=== PATIENT | female | born 1985 | race African-American/Black ===

== ENCOUNTER 2016-07-07 16:09 | Emergency (ER) | payer OTHER, MEDICAID ==
[2016-07-07] MEDS ORDERED: ASPIRIN 325 MG TABLET PO ONE (16:40)
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
--- NOTE | 2016-07-07 18:06 | EKG REPORT ---
SEVERITY:- NORMAL ECG - SINUS RHYTHM : Confirmed by: Dillon Collins MD 07-Jul-2016 18:05:30
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
[2016-07-07 21:08] VITALS: BP 117/86
== END 2016-07-07 18:48 | disposition home or self-care (01) ==
LOC: ER 16:09
DX: R07.89 Other chest pain (principal); M54.5 Low back pain; V49.9XXS Car occupant (driver) (passenger) injured in unspecified traffic accident, sequela; F17.210 Nicotine dependence, cigarettes, uncomplicated; M06.9 Rheumatoid arthritis, unspecified; Z79.899 Other long term (current) drug therapy
CPT/HCPCS: 93005; 93010; 99284

== ENCOUNTER 2016-10-13 22:03 | Emergency (ER) | payer MEDICAID, OTHER ==
--- NOTE | 2016-10-14 00:41 | ER Document Report ---
ED Extremity Problem, Lower - General Chief Complaint: Leg Pain Stated Complaint: SWOLLEN FEET,LEGS,HEARD SOMETHING Notes: The patient is a 31-year-old female who presents with multiple complaints. She was walking in the rain earlier tonight and noticed a pain over the top of her right foot. In addition, she is having dysuria for the past 2 days and started cranberry pills. She is also noticing several months of worsening ankle swelling at the end of the day. She denies numbness, tingling, open wounds, calf swelling, fevers, nausea, vomiting, chest pain or shortness of breath. TRAVEL OUTSIDE OF THE [place] IN LAST 30 DAYS: No - Related Data Allergies/Adverse Reactions: No Known Allergies Allergy (Verified 07/07/16 16:35) Past Medical History - General Information source: Patient - Social History Smoking Status: Current Every Day Smoker Family History: Reviewed & Not Pertinent - Past Medical History Cardiac Medical History: Denies: Hx Heart Attack, Hx Hypertension Pulmonary Medical History: Denies: Hx Asthma, Hx Bronchitis, Hx COPD, Hx Pneumonia Neurological Medical History: Denies: Hx Seizures Renal/ Medical History: Denies: Hx Peritoneal Dialysis Musculoskeltal Medical History: Reports Hx Arthritis - RA Psychiatric Medical History: Reports: Hx Anxiety, Hx Depression - Anxiety Past Surgical History: Reports: Hx Section - x 5, Hx Hysterectomy - Immunizations Hx Diphtheria, Pertussis, Tetanus Vaccination: Yes Review of Systems - Review of Systems Notes: REVIEW OF SYSTEMS: CONSTITUTIONAL: -fevers, -chills EENT: -eye pain, -difficulty swallowing, -nasal congestion CARDIOVASCULAR: -chest pain, -syncope. RESPIRATORY: -cough, -SOB GASTROINTESTINAL: -abdominal pain, -nausea, -vomiting, -diarrhea GENITOURINARY: +dysuria, -hematuria MUSCULOSKELETAL: -back pain, -neck pain, +right foot pain SKIN: -rash or skin lesions. HEMATOLOGIC: -easy bruising or bleeding. LYMPHATIC: -swollen, enlarged glands. NEUROLOGICAL: -altered mental status or loss of consciousness, -headache, - neurologic symptoms PSYCHIATRIC: -anxiety, -depression. ALL OTHER SYSTEMS REVIEWED AND NEGATIVE. Physical Exam - Vital signs Vitals: Temp Pulse Resp BP Pulse Ox 97.9 F 68 20 125/75 100 10/13/16 22:19 10/13/16 22:19 10/13/16 22:19 10/13/16 22:19 10/13/16 22:19 - Notes Notes: PHYSICAL EXAMINATION: GENERAL: Well-appearing, well-nourished and in no acute distress. HEAD: Atraumatic, normocephalic. EYES: Pupils equal round and reactive to light, extraocular movements intact, sclera anicteric, conjunctiva are normal. ENT: nares patent, oropharynx clear without exudates. Moist mucous membranes. NECK: Normal range of motion, supple without lymphadenopathy LUNGS: Breath sounds clear to auscultation bilaterally and equal. No wheezes rales or rhonchi. HEART: Regular rate and rhythm without murmurs ABDOMEN: Soft, nontender, normoactive bowel sounds. No guarding, no rebound. No masses appreciated. EXTREMITIES: Normal range of motion, no pitting or edema. No cyanosis. Mild tenderness over top of right foot. NEUROLOGICAL: Cranial nerves grossly intact. Normal speech, normal gait. Normal sensory, motor, and reflex exams. PSYCH: Normal mood, normal affect. SKIN: Warm, Dry, normal turgor, no rashes or lesions noted. Course - Re-evaluation Re-evalutation: Patient presents with multiple vague complaints that did not appear to be concerning for any acute life-threatening pathology. Vitals are within normal limits at triage and at time of discharge. Physical examination is unremarkable. Patient has tolerated oral intake without difficulty. Patient was not noted to be in distress at any point during their ER visit. At this time, based on the reassuring evaluation, I do not suspect an acute OK, pulmonary embolus, aortic dissection, acute intra-abdominal pathology, stroke, or sepsis.Will discharge with return precautions and follow-up recommendations. Verbal discharge instructions given a the bedside and opportunity for questions given. Medication warnings reviewed. Patient is in agreement with this plan and has verbalized understanding of return precautions and the need for primary care follow-up in the next 24-72 hours. - Vital Signs Vital signs: Temp Pulse Resp BP Pulse Ox 98.0 F 69 15 113/67 98 10/14/16 02:07 10/14/16 02:07 10/14/16 02:07 10/14/16 02:07 10/14/16 02:07 - Laboratory Laboratory results interpreted by me: 10/14/16 00:47 Ur Leukocyte Esterase TRACE H Urine Ascorbic Acid 20 H - Diagnostic Test Radiology reviewed: Image reviewed, Reports reviewed Radiology results interpreted by me: Normal right foot x-ray. Discharge - Discharge Clinical Impression: Foot pain, right, Dysuria Condition: Good Disposition: HOME, SELF-CARE Additional Instructions: Continue to take the cranberry pills to help with her urinary symptoms. There is no signs of a UTI 1 year urinalysis. No broken bones on your foot x-ray. Continue Motrin and elevating legs to help with any swelling. Follow-up with your primary care physician.
[2016-10-14 01:21] LABS: APPEARANCE,URINE SLIGHTLY-CLOUDY; BILIRUBIN,URINE NEGATIVE (NEGATIVE); GLUCOSE, URINE NEGATIVE (NEGATIVE); KETONES,URINE NEGATIVE (NEGATIVE); LEUKOCYTE ESTERASE,URINE TRACE (NEGATIVE); NITRITE,URINE NEGATIVE (NEGATIVE); PROTEIN,URINE NEGATIVE (NEGATIVE); URINE SPECIFIC GRAVITY 1.033; UROBILINOGEN,URINE NEGATIVE mg/dL (<2.0)
[2016-10-14 02:09] VITALS: BP 113/67
== END 2016-10-14 02:07 | disposition home or self-care (01) ==
LOC: ER 22:03
DX: R30.0 Dysuria (principal); M79.671 Pain in right foot; M79.604 Pain in right leg; F17.200 Nicotine dependence, unspecified, uncomplicated; Z90.710 Acquired absence of both cervix and uterus
CPT/HCPCS: 81001; 81025; 82962; 99284

== ENCOUNTER 2017-07-01 23:42 | Emergency (ER) | payer MEDICAID ==
[2017-07-02 01:14] VITALS: BP 105/71
[2017-07-02] MEDS ORDERED: IBUPROFEN 600 MG TABLET PO ONE (01:14)
--- NOTE | 2017-07-02 01:14 | ER Document Report ---
HPI - HPI Patient complains to provider of: chest pain Pain Level: Denies Context: 6 patient is a 32-year-old female presents emergency department complaining of chest pain she has had on and off every other day for the past 6 weeks. Patient states that she has been really stressed at home since she is a single mother for 5 children. She describes it as a bruise muscle pain in the center of her chest that improves with aspirin. She has not followed up with her primary care doctor about this. She is a current smoker. Otherwise denies any history of hypertension, hyperlipidemia, diabetes, coronary artery disease. - REPRODUCTIVE Reproductive: DENIES: : - DERM Skin Color: Normal Past Medical History - Social History Smoking Status: Current Every Day Smoker Chew tobacco use (# tins/day): No Frequency of alcohol use: None Drug Abuse: None Family History: Reviewed & Not Pertinent Patient has suicidal ideation: No Patient has homicidal ideation: No - Past Medical History Cardiac Medical History: Denies: Hx Heart Attack, Hx Hypertension Pulmonary Medical History: Denies: Hx Asthma, Hx Bronchitis, Hx COPD, Hx Pneumonia Neurological Medical History: Denies: Hx Seizures Renal/ Medical History: Denies: Hx Peritoneal Dialysis Musculoskeltal Medical History: Reports Hx Arthritis - RA Psychiatric Medical History: Reports: Hx Anxiety, Hx Depression - Anxiety Past Surgical History: Reports: Hx Section - x 5, Hx Hysterectomy - Immunizations Hx Diphtheria, Pertussis, Tetanus Vaccination: Yes Vertical Provider Document - CONSTITUTIONAL Agree With Documented VS: Yes Notes: PHYSICAL EXAM GENERAL: Alert, interacts well. LUNGS: Clear to auscultation bilaterally, no wheezes, rales, or rhonchi. No respiratory distress. HEART: Regular rate and rhythm. No murmurs, gallops, or rubs. ABDOMEN: Soft, nondistended, nontender. No guarding, rebound, or rigidity.. Bowel sounds present in all 4 quadrants. EXTREMITIES: Moves all 4 extremities spontaneously. No edema, radial and dorsalis pedis pulses 2/4 bilaterally. No cyanosis. NEUROLOGICAL: Alert and oriented x4. Normal speech. PSYCH: Normal affect, normal mood. When asked about her social situation at home she is easily tearful SKIN: Warm, dry, normal turgor. No rashes or lesions noted. - INFECTION CONTROL TRAVEL OUTSIDE OF THE [place] IN LAST 30 DAYS: No - RESPIRATORY O2 Sat by Pulse Oximetry: 98 Course - Re-evaluation Re-evalutation: 07/02/17 01:11 Patient is a 32-year-old female is hemodynamically stable, no acute distress and afebrile. Presentation is consistent with anxiety given that she has had these attacks frequently for the past 6 weeks given current stressors. Low suspicion for heartburn given no epigastric tenderness no previous history of GERD. Patient declining any GI cocktail at this time. Patient is very well in appearance, vitals within normal limits. Low clinical suspicion for ACS given clinical history, exam, EKG without ST elevations or depressions. HEART score less than or equal to 3. PE also seems unlikely given clinical history, absence of tachycardia or dyspnea. Well's score of 0. Patient did refuse a chest x-ray. At this time will discharge with return precautions and follow-up recommendations. Verbal discharge instructions given a the bedside and opportunity for questions given. Medication warnings reviewed. Patient is in agreement with this plan and has verbalized understanding of return precautions and the need for primary care follow-up in the next 24-72 hours. - Vital Signs Vital signs: Temp Pulse Resp BP Pulse Ox 97.8 F 65 16 121/81 98 07/01/17 23:43 07/01/17 23:43 07/01/17 23:43 07/01/17 23:43 07/01/17 23:43 - EKG Interpretation by Oh EKG shows normal: Sinus rhythm Rate: Normal Rhythm: NSR When compared to previous EKG there are: No significant change Discharge - Discharge Clinical Impression: Anxiety Chest pain Qualifiers: Chest pain type: unspecified Qualified Code(s): R07.9 - Chest pain, unspecified Condition: Good Disposition: HOME, SELF-CARE Additional Instructions: CHEST PAIN OF UNCLEAR CAUSE: The exact cause of your chest pain isn't clear. Fortunately, there is no evidence of a dangerous medical condition. Further testing may be required to find the source of the pain. Most often, we find that this pain is coming from the chest wall -- the muscles or rib joints in the chest. But chest pain can come from the lung and lung lining, the esophagus, the heart valves or heart lining, and even the stomach or gallbladder. Rest. Eat lightly until the pain is gone. We may prescribe medicine for pain and inflammation. You should call the physician immediately if the pain radiates to the shoulder, jaw or arms; if you start to run a fever or develop a cough; or if you develop shortness of breath, or other new or alarming symptoms. Anxiety The physician feels that some of your health problems are being caused by anxiety. Anxiety affects your health in many ways. Anxiety alone can cause palpitations, sweats, chest pains, abdominal pains, shortness of breath, and headaches. It contributes to ulcer disease, high blood pressure, irritable bowel syndrome, and has been shown to cause flare-ups of many other diseases. Anxiety is not a simple disorder to treat. If the anxiety is due to recent life stresses, you may simply need time to "work through" the changes. If the anxiety is due to an underlying unhappiness with yourself or due to psychiatric disturbance, professional help will be needed. Your physician can refer you for further help if needed. Anti-anxiety medication is occasionally given if the stress is acute or if you are having trouble sleeping. Chronic or frequent use of these medications is not a good idea because the body becomes reliant on it, preventing you from dealing with life's normal stresses. FOLLOW-UP CARE: If you have been referred to a physician for follow-up care, call the physician s office for an appointment as you were instructed or within the next two days. If you experience worsening or a significant change in your symptoms, notify the physician immediately or return to the Emergency Department at any time for re-evaluation. Forms: Return to Work Referrals: [facility] [Provider Group] - Follow up in 1 week
--- NOTE | 2017-07-02 08:09 | EKG REPORT ---
SEVERITY:- BORDERLINE ECG - SINUS RHYTHM PROBABLE LEFT ATRIAL ABNORMALITY ST ELEV, PROBABLE NORMAL EARLY REPOL PATTERN : Confirmed by: Dillon Collins MD 02-Jul-2017 08:08:27
== END 2017-07-02 01:21 | disposition home or self-care (01) ==
LOC: ER 23:42
DX: F41.9 Anxiety disorder, unspecified (principal); R07.89 Other chest pain; F17.200 Nicotine dependence, unspecified, uncomplicated
CPT/HCPCS: 93005; 99284; 93010; J3490

== ENCOUNTER 2017-09-17 08:08 | Day surgery (SDC) | payer MEDICAID, OTHER ==
[2017-09-07 12:05] LABS: HEMATOCRIT 44.5 % (36.0-47.0); HEMOGLOBIN 14.9 g/dL (12.0-15.5); MEAN CORPUSCULAR HEMOGLOBIN 31.7 pg (27.0-33.4); MEAN CORPUSCULAR HGB CONC 33.4 g/dL (32.0-36.0); MEAN CORPUSCULAR VOLUME 95 fl (80-97); PLATELET COUNT 277 10^3/uL (150-450); RED CELL DISTRIBUTION WIDTH 13.3 % (11.5-14.0); WHITE BLOOD COUNT 6.3 10^3/uL (4.0-10.5)
[2017-09-07 12:06] LABS: APPEARANCE,URINE SLIGHTLY-CLOUDY; BILIRUBIN,URINE NEGATIVE (NEGATIVE); COLOR,URINE YELLOW; GLUCOSE, URINE NEGATIVE (NEGATIVE); KETONES,URINE NEGATIVE (NEGATIVE); LEUKOCYTE ESTERASE,URINE TRACE (NEGATIVE); NITRITE,URINE NEGATIVE (NEGATIVE); PROTEIN,URINE NEGATIVE (NEGATIVE); URINE SPECIFIC GRAVITY 1.023; UROBILINOGEN,URINE NEGATIVE mg/dL (<2.0)
[~2017-09-17 08:08] MED LIST: BUPIVACAINE HCL 0.25 % INJ/PF (2.5 MG/1 ML) 30 ML VIAL ONE; LACTATED RINGERS 1000 ML IV PRN; LIDOCAINE 0.5% INJ-PF (5 MG/ML) 50 ML SDV SUBCUT PRN
[2017-09-17] MEDS ORDERED: FENTANYL CITRATE INJ/PF 100 MCG/2 ML AMPUL ONE (09:53)
[2017-09-17] MEDS ORDERED: MIDAZOLAM 2 MG/2 ML INJ ONE (09:53)
[2017-09-17] MEDS ORDERED: ACETAMINOPHEN 100 ML IV ONE (09:54)
[2017-09-17] MEDS ORDERED: PROPOFOL INJ 200 MG/20 ML VIAL IV ONE (09:54)
[2017-09-17] MEDS ORDERED: OXYCODONE-ACETAMINOPHEN 5-325 MG TABLET PO PRN ×3 (10:34→11:25)
[2017-09-17] MEDS ORDERED: DIPHENHYDRAMINE HCL 50 MG/ML VIAL IV PRN (10:34)
[2017-09-17] MEDS ORDERED: FENTANYL CITRATE INJ/PF 100 MCG/2 ML AMPUL IV PRN ×3 (10:34)
[2017-09-17] MEDS ORDERED: MEPERIDINE HCL/PF INJ 25 MG/1 ML DISP.SYRIN IV PRN (10:34)
[2017-09-17] MEDS ORDERED: PROMETHAZINE HCL INJ 25 MG/1 ML VIAL IV PRN ×2 (10:34)
[2017-09-17] MEDS ORDERED: ONDANSETRON HCL INJ/PF 4 MG/2 ML SDV IV PRN (10:34)
[2017-09-17] MEDS ORDERED: ONDANSETRON 4 MG TAB.RAPDIS PO PRN (11:26)
[2017-09-17] MEDS ORDERED: MEPERIDINE HCL/PF INJ 25 MG/1 ML DISP.SYRIN ONE (11:29)
--- NOTE | 2017-09-17 12:34 | OPERATIVE REPORT E ---
Operative Report NAME: MIKE GALVEZ : 1985 AGE: 32Y DATE OF SURGERY: 09/17/2017 ROOM: PREOPERATIVE DIAGNOSIS: Pelvic pain. POSTOPERATIVE DIAGNOSIS: Pelvic pain. OPERATION: Right oophorectomy. SURGEON: Cholo DORMAN M.D. ESTIMATED BLOOD LOSS: Less than 5 mL. TISSUE REMOVED OR ALTERED: Right ovary. ANESTHESIA: General. PROCEDURE: The patient was placed in the dorsal lithotomy position, prepped and draped in usual sterile fashion. The bladder was drained with a catheter, and sponge stick was placed in the vagina. A subumbilical linear incision was made. A #5 trocar was introduced with visualization of the pelvis. The right ovary appeared to be free. There was no tube identified. The left ovary appeared to be slightly adhered to the left adnexal wall, but again, it was free. There was some old adhesions from previous surgery. A second puncture was made at the level of the symphysis, and a #10-12 trocar was introduced, and a third on the left lateral to the umbilicus. Using a harmonic scalpel, the right ovarian ligament was identified and divided, and the ovary was placed in a Pleatman Sac and removed, and deflated trocar sleeves removed. The incision is closed with 0 Vicryl for the fascia and 4-0 Vicryl for subcutaneous for the skin. The patient tolerated the procedure well and was taken to recovery in good condition. DICTATING PHYSICIAN: Cholo DORMAN M.D. 1950M [id number] Y#: [id number] ID: [id number] JOB#: [id number] ACCT: [id number] cc:Cholo DORMAN M.D. >
[2017-09-17] MEDS ORDERED: IBUPROFEN 800 MG TABLET PO SCH (14:00)
[2017-09-17] MEDS ORDERED: SUCCINYLCHOLINE CHLORIDE INJ 200 MG/10 ML VIAL ONE (14:11)
[2017-09-17] MEDS ORDERED: NEOSTIGMINE METHYLSULFATE 10 MG/10 ML VIAL ONE (14:11)
[2017-09-17] MEDS ORDERED: METOCLOPRAMIDE HCL INJ/PF 10 MG/2 ML SDV ONE (14:11)
[2017-09-17] MEDS ORDERED: ROCURONIUM BROMIDE INJ 50 MG/5 ML VIAL IV ONE (14:11)
[2017-09-17] MEDS ORDERED: GLYCOPYRROLATE INJ 0.4 MG/2 ML VIAL ONE (14:11)
[2017-09-17] MEDS ORDERED: ONDANSETRON HCL INJ/PF 4 MG/2 ML SDV ONE (14:11)
[2017-09-17] MEDS ORDERED: DEXAMETHASONE SOD PHOSPHATE INJ 4 MG/1 ML VIAL ONE (14:11)
[2017-09-17] MEDS ORDERED: LIDOCAINE 2% INJ-PF (20 MG/ML) 2 ML AMPUL ONE (14:11)
[2017-09-17] MEDS ORDERED: KETOROLAC TROMETHAMINE 60 MG/2 ML SDV ONE (14:11)
[2017-09-17 14:16] VITALS: BP 107/70
== END 2017-09-17 13:30 | disposition home or self-care (01) ==
LOC: OROUT 08:08
PROVIDERS: ATTEND Obstetrics & Gynecology Gynecology
PROC: 0UT04ZZ Resection of Right Ovary, Percutaneous Endoscopic Approach (ICD-10-PCS; principal; 2017-09-17 09:45)
DX: R10.2 Pelvic and perineal pain (principal); R10.30 Lower abdominal pain, unspecified; K66.0 Peritoneal adhesions (postprocedural) (postinfection); F17.210 Nicotine dependence, cigarettes, uncomplicated; M19.90 Unspecified osteoarthritis, unspecified site
CPT/HCPCS: 36415; 85027; 81005; 88305 ×2; 58661; J2250; J3490 ×3; J1100; J1885; J3010; J2175; J2765; J0330; J2405; S0020; J2704; J0131; 840

== ENCOUNTER 2017-09-20 20:52 | Emergency (ER) | payer MEDICAID ==
[2017-09-20 21:22] VITALS: BP 126/81
--- NOTE | 2017-09-20 22:20 | EKG REPORT ---
SEVERITY:- BORDERLINE ECG - SINUS RHYTHM PROBABLE LEFT ATRIAL ABNORMALITY BORDERLINE T ABNORMALITIES, ANTERIOR LEADS : Confirmed by: Dillon Collins MD 20-Sep-2017 22:20:21
== END 2017-09-20 22:33 | disposition left against medical advice (07) ==
LOC: ER 20:52
DX: Z53.21 Procedure and treatment not carried out due to patient leaving prior to being seen by health care provider (principal)
CPT/HCPCS: 93005; 93010

== ENCOUNTER 2017-09-21 13:51 | Emergency (ER) | payer MEDICAID ==
[2017-09-21] MEDS ORDERED: NORMAL SALINE 1000 ML 1,000 ML IV ONE (14:45)
--- NOTE | 2017-09-21 14:47 | ER Document Report ---
ED Medical Screen (RME) - General Chief Complaint: Abdominal Pain Stated Complaint: ABDOMINAL PAIN Time Seen by Provider: 09/21/17 14:39 TRAVEL OUTSIDE OF THE [place] IN LAST 30 DAYS: No - HPI Notes: 09/21/17 14:46 Patient unable to complaints after having her left ovary and fallopian tube removed on the . Blurry vision abdominal pain swelling numbness and tingling in all extremities patient has not had a bowel movement since leaving has been compliant with her pain management - Related Data Allergies/Adverse Reactions: No Known Allergies Allergy (Verified 09/07/17 10:47) Past Medical History - Social History Frequency of alcohol use: None Drug Abuse: None - Past Medical History Cardiac Medical History: Denies: Hx Heart Attack, Hx Hypertension Pulmonary Medical History: Denies: Hx Asthma, Hx Bronchitis, Hx COPD, Hx Pneumonia Neurological Medical History: Denies: Hx Seizures Renal/ Medical History: Denies: Hx Peritoneal Dialysis Musculoskeltal Medical History: Reports Hx Arthritis - osteo Psychiatric Medical History: Reports: Hx Anxiety, Hx Depression - Anxiety Past Surgical History: Reports: Hx Section - x 5, Hx Hysterectomy - Immunizations Hx Diphtheria, Pertussis, Tetanus Vaccination: - unk History of Influenza Vaccine for 03/2017 - 08/2017 Season: No Review of Systems - Review of Systems Constitutional: Other - Multiple complaints Physical Exam - Vital signs Vitals: Temp Pulse Resp BP Pulse Ox 98.3 F 71 18 123/74 96 09/21/17 14:00 09/21/17 14:00 09/21/17 14:00 09/21/17 14:00 09/21/17 14:00 - Abdominal Notes: Surgical scars are covered with a Band-Aid otherwise well-healed. Course - Re-evaluation Re-evalutation: 09/21/17 14:47 I have greeted and performed a rapid initial assessment of this patient. A comprehensive ED assessment and evaluation of the patient, analysis of test results and completion of the medical decision making process will be conducted by additional ED providers. - Vital Signs Vital signs: Temp Pulse Resp BP Pulse Ox 98.3 F 71 18 123/74 96 09/21/17 14:00 09/21/17 14:00 09/21/17 14:00 09/21/17 14:00 09/21/17 14:00
[2017-09-21 15:35] LABS: ABSOLUTE BASOPHILS # (AUTO) 0.1 10^3/uL (0.0-0.2); ABSOLUTE EOSINOPHILS # (AUTO) 0.3 10^3/uL (0.0-0.6); ABSOLUTE LYMPHOCYTES (AUTO) 2.5 10^3/uL (0.5-4.7); ABSOLUTE MONOCYTES (AUTO) 0.5 10^3/uL (0.1-1.4); ABSOLUTE NEUT (AUTO) 5.4 10^3/uL (1.7-8.2); BASOPHILS % (AUTO) 0.6 % (0-2); EOSINOPHILS % (AUTO) 3.1 % (0-6); HEMATOCRIT 40.6 % (36.0-47.0); HEMOGLOBIN 13.5 g/dL (12.0-15.5); LYMPHOCYTES % (AUTO) 28.7 % (13-45); MEAN CORPUSCULAR HEMOGLOBIN 31.7 pg (27.0-33.4); MEAN CORPUSCULAR HGB CONC 33.3 g/dL (32.0-36.0); MEAN CORPUSCULAR VOLUME 95 fl (80-97); MONOCYTES % (AUTO) 6.3 % (3-13); PLATELET COUNT 238 10^3/uL (150-450); RED BLOOD COUNT 4.27 10^6/uL (3.72-5.28); RED CELL DISTRIBUTION WIDTH 13.5 % (11.5-14.0); SEGMENTED NEUTROPHILS % (AUTO) 61.3 % (42-78); TOTAL CELLS COUNTED % (AUTO) 100 %; WHITE BLOOD COUNT 8.8 10^3/uL (4.0-10.5)
[2017-09-21 15:54] LABS: ALANINE AMINOTRANSFERASE 22 U/L (9-52); ALBUMIN 3.5 g/dL (3.5-5.0); ALKALINE PHOSPHATASE 55 U/L (38-126); ASPARTATE AMINO TRANSFERASE 23 U/L (14-36); BILIRUBIN,DIRECT 0.3 mg/dL (0.0-0.4); BILIRUBIN,TOTAL 0.3 mg/dL (0.2-1.3); BLOOD UREA NITROGEN 13 mg/dL (7-20); CALCIUM 8.7 mg/dL (8.4-10.2); GLUCOSE 86 mg/dL (75-110); LIPASE 72.4 U/L (23-300); POTASSIUM 3.7 mmol/L (3.6-5.0); TOTAL PROTEIN 6.4 g/dL (6.3-8.2)
[2017-09-21 15:59] LABS: ANION GAP 5 (5-19); CARBON DIOXIDE 32 mmol/L (22-30); CHLORIDE 105 mmol/L (98-107)
[2017-09-21] MEDS ORDERED: MORPHINE SULFATE 10 MG/ML INJ IV ONE (16:24)
[2017-09-21 17:51] LABS: APPEARANCE,URINE CLEAR; BILIRUBIN,URINE NEGATIVE (NEGATIVE); COLOR,URINE AMBER; GLUCOSE, URINE NEGATIVE (NEGATIVE); KETONES,URINE NEGATIVE (NEGATIVE); LEUKOCYTE ESTERASE,URINE MODERATE (NEGATIVE); NITRITE,URINE POSITIVE (NEGATIVE); PROTEIN,URINE NEGATIVE (NEGATIVE); URINE SPECIFIC GRAVITY 1.016
--- NOTE | 2017-09-21 18:03 | RADIOLOGY REPORT (SQ) ---
EXAM DESCRIPTION: CT ABD/PELVIS WITH IV ONLY COMPLETED DATE/TIME: 09/21/2017 5:41 pm REASON FOR STUDY: abd pain post right fallopian and ovary removal COMPARISON: None. TECHNIQUE: CT scan of the abdomen and pelvis performed using helical scanning technique with dynamic intravenous contrast injection. No oral contrast. Images reviewed with lung, soft tissue, and bone windows. Reconstructed coronal and sagittal MPR images reviewed. Delayed images for evaluation of the urinary system also acquired. All images stored on PACS. All CT scanners at this facility use dose modulation, iterative reconstruction, and/or weight based d osing when appropriate to reduce radiation dose to as low as reasonably achievable (ALARA). [facility]: Dose Right [facility]: CareDose [facility]: Dose Right [facility]: Teradose 4D [facility]: Arkadin CONTRAST TYPE AND DOSE: contrast/concentration: Isovue 370.00 mg/ml; Total Contrast Delivered: 93.0 ml; Total Saline Delivered: 50.0 ml RENAL FUNCTION: Creatinine 0.83 RADIATION DOSE: CT Rad equipment meets quality standard of care and radiation dose reduction techniq ues were employed. CTDIvol: 11.9 - 16.2 mGy. DLP: 1467 mGy-cm.. LIMITATIONS: None. FINDINGS: LOWER CHEST: No significant findings. No nodules or infiltrates. LIVER: Normal size. No masses. No dilated ducts. SPLEEN: Normal size. No focal lesions. PANCREAS: No masses. No significant calcifications. No adjacent inflammation or peripancreatic fluid collections. Pancreatic duct not dilated. GALLBLADDER: No identified stones by CT criteria. No inflammatory changes to suggest cholecystitis. ADRENAL GLANDS: No significant masses or asymmetry. RIGHT KIDNEY AND URETER: No solid masses. No significant calcifications. No hydronephrosis or hyd roureter. LEFT KIDNEY AND URETER: 4.4 x 2.2 x 1.8 cm cystic area just inferior to the renal pelvis felt to repr esent parapelvic cyst. No solid masses. No significant calcifications. No hydronephrosis or hydr oureter. AORTA AND VESSELS: No aneurysm. No dissection. Renal arteries, SMA, celiac without stenosis. RETROPERITONEUM: No retroperitoneal adenopathy, hemorrhage or masses. BOWEL AND PERITONEAL CAVITY: No masses or inflammatory changes. No free fluid or peritoneal masses. APPENDIX: Normal. PELVIS: Status post hysterectomy. Minimal inflammatory stranding and fluid in the pelvis felt to rep resent mild postsurgical change. No significant hematoma or abscess. Bladder appears mildly thick w alled felt to be related to poor distention. Cystitis cannot be excluded. ABDOMINAL WALL: Very small fat containing umbilical hernia not felt to be significant. BONES: No significant or acute findings. OTHER: No other significant finding. IMPRESSION: 1. Minimal fluid and inflammatory stranding in the pelvis consistent with mild postsurg ical change. No significant hematoma or abscess. 2. Urinary bladder appears mildly thick walled probably related to poor distention. Cystitis cannot be excluded. 3. 4.4 cm parapelvic renal cyst on the left. TECHNICAL DOCUMENTATION: JOB ID: [id number] Quality ID # [id number]: Final reports with documentation of one or more dose reduction techniques (e.g., Au tomated exposure control, adjustment of the mA and/or kV according to patient size, use of iterative reconstruction technique) 2010 [employer]- All Rights Reserved Reading location - IP/workstation name: [email or web address]
[2017-09-21] MEDS ORDERED: CEFTRIAXONE INJ 1000 MG VIAL IV ONE (18:25)
--- NOTE | 2017-09-21 18:30 | ER Document Report ---
ED GI/ - General Chief Complaint: Abdominal Pain Stated Complaint: ABDOMINAL PAIN Time Seen by Provider: 09/21/17 14:39 Mode of Arrival: Ambulatory Information source: Patient Notes: Patient is a 32-year-old female 4 days postop from surgical removal of the right fallopian tube and right ovary. Patient is coming in complaining of abdominal pain in multiple areas of her abdomen as well as swelling to her nose , under her eyes, fingers, toes as well as easy bruising all over her body, as well as lightheadedness and weakness, as well as nausea, and multiple other complaints today. Patient denies any vaginal bleeding or discharge, states that she has Band-Aids on the sites for the incisions from the surgery and that they look okay. She denies any drainage from those sites. She states that her abdomen is "stretching." TRAVEL OUTSIDE OF THE [place] IN LAST 30 DAYS: No - Related Data Allergies/Adverse Reactions: No Known Allergies Allergy (Verified 09/07/17 10:47) Past Medical History - General Information source: Patient - Social History Smoking Status: Current Every Day Smoker Frequency of alcohol use: None Drug Abuse: None Family History: Reviewed & Not Pertinent Patient has suicidal ideation: No Patient has homicidal ideation: No - Past Medical History Cardiac Medical History: Denies: Hx Heart Attack, Hx Hypertension Pulmonary Medical History: Denies: Hx Asthma, Hx Bronchitis, Hx COPD, Hx Pneumonia Neurological Medical History: Denies: Hx Seizures Renal/ Medical History: Denies: Hx Peritoneal Dialysis Musculoskeltal Medical History: Reports Hx Arthritis - osteo Psychiatric Medical History: Reports: Hx Anxiety, Hx Depression - Anxiety Past Surgical History: Reports: Hx Section - x 5, Hx Hysterectomy - Immunizations Hx Diphtheria, Pertussis, Tetanus Vaccination: - unk Review of Systems - Review of Systems Constitutional: No symptoms reported EENT: No symptoms reported Cardiovascular: No symptoms reported Respiratory: No symptoms reported Gastrointestinal: See HPI Genitourinary: No symptoms reported Female Genitourinary: No symptoms reported Musculoskeletal: No symptoms reported Skin: See HPI Hematologic/Lymphatic: No symptoms reported Neurological/Psychological: No symptoms reported Physical Exam - Vital signs Vitals: Temp Pulse Resp BP Pulse Ox 98.3 F 71 18 123/74 96 09/21/17 14:00 09/21/17 14:00 09/21/17 14:00 09/21/17 14:00 09/21/17 14:00 - Notes Notes: PHYSICAL EXAMINATION: GENERAL: Well-appearing, watching YouTube videos on her phone with headphones on , sitting up in the bed and in no acute distress. HEAD: Atraumatic, normocephalic. EYES: Pupils equal round and reactive to light, extraocular movements intact, sclera anicteric, conjunctiva are normal. ENT: ear canals without erythema or foreign body, TMs pearly farias with good bony landmarks, nares patent, oropharynx clear without exudates. Moist mucous membranes. NECK: Normal range of motion, supple without lymphadenopathy LUNGS: CTAB and equal. No wheezes rales or rhonchi. HEART: Regular rate and rhythm without murmurs ABDOMEN: Soft, mild to moderate diffuse tenderness with extremely light touch, incision sites to the umbilicus, left lower quadrant and left upper quadrant look well, no erythema or drainage. No guarding, no rebound BACK: no vertebral tenderness, normal ROM GI/: no CVA tenderness EXTREMITIES: Normal range of motion, no pitting edema. No cyanosis. NEUROLOGICAL: Cranial nerves grossly intact. Normal sensory/motor exams. PSYCH: Normal mood, normal affect. SKIN: Warm, Dry, normal turgor, no rashes or lesions noted Course - Re-evaluation Re-evalutation: 09/23/17 10:33 platelet count is normal, CAT scan of the abdomen was performed due to recent surgery and coming in with complaints of abdominal distention and CT was negative for any acute pathology, does report normal postsurgical changes and may be some bladder wall thickening due to cystitis, she does have evidence of infection on urinalysis today with 90 white blood cells and leukocytes. I will start her on antibiotics for this. Patient has wanted to eat and has demanded that we bring her a meal, not just crackers but a whole tray of food since she arrived here in the emergency department even though she is complaining of abdominal pain. Patient never looked like she was in pain today until I lightly grazed her abdomen with my hand, she has been watching YouTube videos on her phone and laughing at them every time I enter the room. Patient has normal vital signs today and is afebrile. I was waiting on results from CAT scan and patient was angry that we would not feed her, so nursing supervisor slitting and shipping was asked to go to the bedside to take her formal complaints as she requested, as I was going to give her the results from all of her workup today the nursing supervisor slitting and shipping was entering the room so I waited. Whenever I did go back and I advised her that I was coming to give her the results as the nursing supervisor slitting and shipping was in there to take her complaints and she states "I do not know why everyone thinks I am complaining, I am not complaining, I like all of you and you have all done a great job today. " This is not the story that the nurse or nursing supervisor slitting and shipping have gotten from her as she has been angry, threatening to leave and summoning me to give her her results the entire visit here. When I am in there talking to her, talking about her discharge, she brings up multiple different complaints than what she came in with and I advised her that nothing sounds urgent at this time and she needs to follow-up with her primary care provider and/or this surgeon who performed the surgery. I do not appreciate any swelling anywhere, bruising anywhere and I am not quite sure where her complaints are coming from. - Vital Signs Vital signs: Temp Pulse Resp BP Pulse Ox 98.5 F 63 12 116/74 100 09/21/17 19:46 09/21/17 19:46 09/21/17 19:46 09/21/17 19:46 09/21/17 19:46 - Laboratory Result Diagrams: 09/21/17 15:18 09/21/17 15:18 Laboratory results interpreted by me: 09/21/17 09/21/17 15:18 17:15 Carbon Dioxide 32 H Urine Nitrite POSITIVE H Urine Urobilinogen 4.0 H Ur Leukocyte Esterase MODERATE H Discharge - Discharge Clinical Impression: UTI (urinary tract infection) Qualifiers: Urinary tract infection type: site unspecified Hematuria presence: with hematuria Qualified Code(s): N39.0 - Urinary tract infection, site not specified Abdominal pain Qualifiers: Abdominal location: generalized Qualified Code(s): R10.84 - Generalized abdominal pain Condition: Stable Disposition: HOME, SELF-CARE Instructions: Urinary Tract Infection ([facility]) Additional Instructions: Return immediately for any new or worsening symptoms. Follow up with primary care provider, call tomorrow to make followup appointment. Prescriptions: Nitrofurantoin/Nitrofuran Mac [Macrobid 100 mg Capsule] 1 tab PO BID #14 capsule Referrals: MIRIAN GUAN MD [Primary Care Provider] - Follow up as needed
[2017-09-21] MEDS ORDERED: NITROFURANTOIN MONOHYD/M-CRYST 100 MG CAPSULE PO ONE (18:54)
[2017-09-21] MEDS ORDERED: HYDROCODONE/ACETAMINOPHEN 5-325 MG TABLET PO ONE (19:18)
[2017-09-21 20:13] VITALS: BP 116/74
== END 2017-09-21 20:13 | disposition home or self-care (01) ==
LOC: ER 13:51
DX: N39.0 Urinary tract infection, site not specified (principal); R31.9 Hematuria, unspecified; R10.84 Generalized abdominal pain; R22.0 Localized swelling, mass and lump, head; R42 Dizziness and giddiness; R53.1 Weakness; R09.89 Other specified symptoms and signs involving the circulatory and respiratory systems; M79.89 Other specified soft tissue disorders; R11.0 Nausea; Z90.79 Acquired absence of other genital organ(s); Z90.710 Acquired absence of both cervix and uterus; F17.200 Nicotine dependence, unspecified, uncomplicated; N30.90 Cystitis, unspecified without hematuria
CPT/HCPCS: 99284; 96361; 96374; 36415; 83690; 85025; 80053; 81001; 83605; 74177; J2270; J7030; J3490; J8499

== ENCOUNTER 2017-11-22 19:22 | Emergency (ER) | payer SELFPAY ==
[2017-11-22] MEDS ORDERED: KETOROLAC TROMETHAMINE INJ/PF 30 MG/1 ML SDV IV ONE (20:14)
[2017-11-22] MEDS ORDERED: RINGERS SOLUTION,LACTATED 1,000 ML IV ONE (20:14)
--- NOTE | 2017-11-22 20:21 | ER Document Report ---
ED General - General Chief Complaint: Abdominal Pain Stated Complaint: ABDOMINAL PAIN Time Seen by Provider: 11/22/17 19:31 Notes: Patient is a 32-year-old female with a past medical history of a right-sided salpingo-oophorectomy, no chronic medical problems, who presents with several hours of progressively worsening right lower abdominal pain. She describes it as a severe, constant, throbbing pain that intermittently dramatically worsens with an associated stabbing pain. Nothing seems to improve or worsen her pain. She denies a history of similar symptoms in the past. She has not seen her general doctor regarding today's concerns. She denies any nausea, vomiting, diarrhea or vaginal bleeding. No vaginal discharge or dysuria. No trauma to the area. TRAVEL OUTSIDE OF THE [place] IN LAST 30 DAYS: No - Related Data Allergies/Adverse Reactions: No Known Allergies Allergy (Verified 09/07/17 10:47) Past Medical History - General Information source: Patient - Social History Smoking Status: Current Every Day Smoker Chew tobacco use (# tins/day): No Frequency of alcohol use: Rare Drug Abuse: None Lives with: Family Family History: Reviewed & Not Pertinent Patient has suicidal ideation: No Patient has homicidal ideation: No - Past Medical History Cardiac Medical History: Denies: Hx Heart Attack, Hx Hypertension Pulmonary Medical History: Denies: Hx Asthma, Hx Bronchitis, Hx COPD, Hx Pneumonia Neurological Medical History: Denies: Hx Seizures Renal/ Medical History: Denies: Hx Peritoneal Dialysis Musculoskeltal Medical History: Reports Hx Arthritis - osteo Psychiatric Medical History: Reports: Hx Anxiety, Hx Depression - Anxiety Past Surgical History: Reports: Hx Section - x 5, Hx Hysterectomy - Immunizations Hx Diphtheria, Pertussis, Tetanus Vaccination: - unk Review of Systems - Review of Systems Notes: Constitutional: Negative for fever. HENT: Negative for sore throat. Eyes: Negative for visual changes. Cardiovascular: Negative for chest pain. Respiratory: Negative for shortness of breath. Gastrointestinal: Positive for abdominal pain Genitourinary: Negative for dysuria. Musculoskeletal: Negative for back pain. Skin: Negative for rash. Neurological: Negative for headaches, weakness or numbness. 10 point ROS negative except as marked above and in HPI. Physical Exam - Vital signs Vitals: Temp Pulse Resp BP Pulse Ox 98.0 F 56 L 19 118/80 98 11/22/17 19:32 11/22/17 19:32 11/22/17 19:32 11/22/17 19:32 11/22/17 19:32 Interpretation: Bradycardic Notes: PHYSICAL EXAMINATION: GENERAL: Appears very well when I first walk into the room intermittently seems to be in significant pain. HEAD: Atraumatic, normocephalic. EYES: Pupils equal round and reactive to light, extraocular movements intact, sclera anicteric, conjunctiva are normal. ENT: nares patent, oropharynx clear without exudates. Moist mucous membranes. NECK: Normal range of motion, supple without lymphadenopathy LUNGS: Breath sounds clear to auscultation bilaterally and equal. No wheezes rales or rhonchi. HEART: Regular rate and rhythm without murmurs ABDOMEN: Soft, diffuse tenderness the right lower abdomen otherwise no localized areas of tenderness, rebound or guarding. normoactive bowel sounds. EXTREMITIES: Normal range of motion, no pitting or edema. No cyanosis. NEUROLOGICAL: No focal neurological deficits. Moves all extremities spontaneously and on command. PSYCH: Somewhat anxious SKIN: Warm, Dry, normal turgor, no rashes or lesions noted. Course - Re-evaluation Re-evalutation: 11/22/17 20:20 Patient presents with acute onset of progressive worsening right lower quadrant abdominal pain. The patient is quite dramatic on examination has periods where she is talking calmly and then grabs her right lower abdomen vigorously and will not speak for approximately 30 seconds to 1 minute. Of note during this time point she does not have any increased heart rate or any other objective signs of progressively worsening pain. Patient had a salpingo-oophorectomy to the area approximately 3 months ago and denies any history of similar symptoms since that time. Diagnostic considerations would include possible intra-for peritoneal bleed, acute appendicitis seems quite unlikely given history, less likely be an acute localized colitis given the absence of diarrhea or vomiting. Will proceed with labs, CT abdomen pelvis with IV contrast given the patient' s reported level of pain and localization of the pain to the right lower quadrant and then reassess the patient. 11/22/17 21:55 CT of the abdomen pelvis does not show any acute findings. Labs overall unremarkable with exception of what appears to be a possible cystitis. Patient will be started on cephalexin to treat this and a urine culture has been sent. Her pain and presentation is much improved at this time point. At this time will discharge with return precautions and follow-up recommendations. Verbal discharge instructions given a the bedside and opportunity for questions given. Medication warnings reviewed. Patient is in agreement with this plan and has verbalized understanding of return precautions and the need for primary care follow-up in the next 24-72 hours. - Vital Signs Vital signs: Temp Pulse Resp BP Pulse Ox 98.6 F 56 L 16 136/82 H 100 11/22/17 23:00 11/22/17 19:32 11/22/17 23:00 11/22/17 23:00 11/22/17 22:00 - Laboratory Result Diagrams: 11/22/17 19:50 11/22/17 19:50 Laboratory results interpreted by me: 11/22/17 11/22/17 19:50 20:35 AST 10 L Urine Urobilinogen 2.0 H Ur Leukocyte Esterase TRACE H - Diagnostic Test Radiology reviewed: Reports reviewed Discharge - Discharge Clinical Impression: Pelvic pain, Right lower quadrant abdominal pain, Cystitis Condition: Good Disposition: HOME, SELF-CARE Additional Instructions: Your urine shows findings consistent with a urinary tract infection. Please take all the antibiotics as directed even if your symptoms have improved. Please follow-up with your primary care physician as needed. Return to emergency room if you develop fever >101F, persistent vomiting, become lethargic , have severe pain in your sides, or any other symptoms that are concerning to you. Your CT scan and the remainder of your labs are otherwise very reassuring and do not show any life-threatening cause of your lower abdominal pain. For your pain: Take ibuprofen 600 mg and acetaminophen 1000 mg every 6 hours together as needed for pain. Prescriptions: Cephalexin Monohydrate [Keflex 500 mg Capsule] 500 mg PO Q6H 5 Days capsule Fluconazole 200 mg PO ONCE PRN #1 tablet PRN Reason: Oxybutynin Chloride 5 mg PO TID PRN #30 tablet PRN Reason: Referrals: MIRIAN GUAN MD [Primary Care Provider] - Follow up as needed
[2017-11-22 20:22] LABS: ABSOLUTE EOSINOPHILS # (AUTO) 0.3 10^3/uL (0.0-0.6); ABSOLUTE LYMPHOCYTES (AUTO) 2.8 10^3/uL (0.5-4.7); ABSOLUTE MONOCYTES (AUTO) 0.5 10^3/uL (0.1-1.4); ABSOLUTE NEUT (AUTO) 3.4 10^3/uL (1.7-8.2); BASOPHILS % (AUTO) 0.4 % (0-2); EOSINOPHILS % (AUTO) 3.6 % (0-6); HEMATOCRIT 43.4 % (36.0-47.0); HEMOGLOBIN 14.8 g/dL (12.0-15.5); LYMPHOCYTES % (AUTO) 40.5 % (13-45); MEAN CORPUSCULAR HEMOGLOBIN 32.1 pg (27.0-33.4); MEAN CORPUSCULAR HGB CONC 34.1 g/dL (32.0-36.0); MEAN CORPUSCULAR VOLUME 94 fl (80-97); MONOCYTES % (AUTO) 7.6 % (3-13); PLATELET COUNT 223 10^3/uL (150-450); RED CELL DISTRIBUTION WIDTH 13.5 % (11.5-14.0); SEGMENTED NEUTROPHILS % (AUTO) 47.9 % (42-78); TOTAL CELLS COUNTED % (AUTO) 100 %
[2017-11-22] MEDS: MORPHINE SULFATE 10 MG/ML INJ IV PRN ×2 (20:30→22:44)
[2017-11-22 20:31] LABS: ALANINE AMINOTRANSFERASE 18 U/L (9-52); ALBUMIN 3.6 g/dL (3.5-5.0); ALKALINE PHOSPHATASE 52 U/L (38-126); ANION GAP 8 (5-19); ASPARTATE AMINO TRANSFERASE 10 U/L (14-36); BILIRUBIN,DIRECT 0.2 mg/dL (0.0-0.4); BILIRUBIN,TOTAL 0.2 mg/dL (0.2-1.3); BLOOD UREA NITROGEN 11 mg/dL (7-20); CARBON DIOXIDE 27 mmol/L (22-30); CHLORIDE 106 mmol/L (98-107); GLUCOSE 81 mg/dL (75-110); POTASSIUM 4.2 mmol/L (3.6-5.0); SODIUM 140.6 mmol/L (137-145); TOTAL PROTEIN 6.5 g/dL (6.3-8.2)
[2017-11-22 21:05] LABS: APPEARANCE,URINE SLIGHTLY-CLOUDY; BILIRUBIN,URINE NEGATIVE (NEGATIVE); COLOR,URINE YELLOW; GLUCOSE, URINE NEGATIVE (NEGATIVE); KETONES,URINE NEGATIVE (NEGATIVE); LEUKOCYTE ESTERASE,URINE TRACE (NEGATIVE); NITRITE,URINE NEGATIVE (NEGATIVE); PROTEIN,URINE NEGATIVE (NEGATIVE); URINE SPECIFIC GRAVITY 1.021
--- NOTE | 2017-11-22 21:40 | RADIOLOGY REPORT (SQ) ---
EXAM DESCRIPTION: CT ABD/PELVIS WITH IV ONLY COMPLETED DATE/TIME: 11/22/2017 9:06 pm REASON FOR STUDY: rlq ab pain, hx right salpingo oophorectomy COMPARISON: 09/21/2017. TECHNIQUE: CT scan of the abdomen and pelvis performed using helical scanning technique with dynamic intravenous contrast injection. No oral contrast. Images reviewed with lung, soft tissue, and bone windows. Reconstructed coronal and sagittal MPR images reviewed. Delayed images for evaluation of the urinary system also acquired. All images stored on PACS. All CT scanners at this facility use dose modulation, iterative reconstruction, and/or weight based d osing when appropriate to reduce radiation dose to as low as reasonably achievable (ALARA). [facility]: Dose Right [facility]: CareDose [facility]: Dose Right [facility]: Teradose 4D [facility]: ALTO CINCO CONTRAST TYPE AND DOSE: contrast/concentration: Isovue 370.00 mg/ml; Total Contrast Delivered: 100.0 ml; Total Saline Delivered: 70.0 ml RENAL FUNCTION: GFR > 60. RADIATION DOSE: CT Rad equipment meets quality standard of care and radiation dose reduction techniq ues were employed. CTDIvol: 11.4 - 15.1 mGy. DLP: 1406 mGy-cm.. LIMITATIONS: None. FINDINGS: LOWER CHEST: No significant findings. No nodules or infiltrates. LIVER: Normal size. No masses. No dilated ducts. SPLEEN: Normal size. No focal lesions. PANCREAS: No masses. No significant calcifications. No adjacent inflammation or peripancreatic fluid collections. Pancreatic duct not dilated. GALLBLADDER: No identified stones by CT criteria. No inflammatory changes to suggest cholecystitis. ADRENAL GLANDS: No significant masses or asymmetry. RIGHT KIDNEY AND URETER: No solid masses. No significant calcifications. No hydronephrosis or hyd roureter. LEFT KIDNEY AND URETER: No solid masses. No significant calcifications. No hydronephrosis or hydr oureter. AORTA AND VESSELS: No aneurysm. No dissection. Renal arteries, SMA, celiac without stenosis. RETROPERITONEUM: No retroperitoneal adenopathy, hemorrhage or masses. BOWEL AND PERITONEAL CAVITY: No masses or inflammatory changes. No free fluid or peritoneal masses. APPENDIX: Normal. PELVIS: No mass. No free fluid. Normal bladder. ABDOMINAL WALL: No masses. No hernias. BONES: No significant or acute findings. OTHER: No other significant finding. IMPRESSION: NO ACUTE FINDING IN THE ABDOMEN OR PELVIS ON CT SCAN WITH IV CONTRAST. TECHNICAL DOCUMENTATION: JOB ID: [id number] Quality ID # [id number]: Final reports with documentation of one or more dose reduction techniques (e.g., Au tomated exposure control, adjustment of the mA and/or kV according to patient size, use of iterative reconstruction technique) 2010 [employer]- All Rights Reserved Reading location - IP/workstation name: [email or web address]
[2017-11-22] MEDS ORDERED: CEPHALEXIN 500 MG CAPSULE PO ONE (21:55)
[2017-11-22] MEDS ORDERED: HALOPERIDOL LACTATE INJ 5 MG/1 ML VIAL IV ONE (22:07)
[2017-11-22] MEDS ORDERED: OXYBUTYNIN CHLORIDE 5 MG TABLET PO ONE (22:08)
[2017-11-22] MEDS ORDERED: HYDROCODONE/ACETAMINOPHEN 5-325 MG (6 TAB/ER DISP) PO PRN (22:11)
[2017-11-23 00:03] VITALS: BP 136/82
== END 2017-11-22 23:15 | disposition home or self-care (01) ==
LOC: ER 19:22
DX: N30.90 Cystitis, unspecified without hematuria (principal); R10.31 Right lower quadrant pain; R10.2 Pelvic and perineal pain; F17.200 Nicotine dependence, unspecified, uncomplicated; Z90.710 Acquired absence of both cervix and uterus
CPT/HCPCS: 96376; 99284; 96361; 96374; 96375; 36415; 87086; 84703; 85025; 87088; 80053; 81001; 87186; 74177; J1630; J1885; J2270; J7120